=== PATIENT | female | born 1995 | race Caucasian/White ===

== ENCOUNTER 2020-11-13 19:05 | Emergency (ER) | payer OTHER ==
[~2020-11-13] VITALS: Ht 157.5 cm; Wt 61.2 kg
[~2020-11-13 19:05] MED LIST: Amoxicillin500 MG PO
[2020-11-13 19:35] LABS: BASOPHILS ABSOLUTE AUTO 0.08 K/mm3 (0.00-0.23); BASOPHILS PERCENT AUTO 1 % (0-2); EOSINOPHILS ABSOLUTE AUTO 0.11 K/mm3 (0.00-0.68); EOSINOPHILS PERCENT AUTO 2 % (0-6); Hematocrit 39.8 % (33.0-51.0); Hemoglobin 13.1 g/dL (11.5-16.0); IMMATURE GRAN ABSOLUTE AUTO 0.02 K/mm3 (0.00-0.10); IMMATURE GRAN PERCENT AUTO 0 % (0-1); LYMPHOCYTES ABSOLUTE AUTO 2.14 K/mm3 (0.84-5.20); LYMPHOCYTES PERCENT AUTO 29 % (21-46); MONOCYTES ABSOLUTE AUTO 0.69 K/mm3 (0.16-1.47); MONOCYTES PERCENT AUTO 10 % (4-13); Mean Corpuscular HGB 28.7 pg (26.0-34.0); Mean Corpuscular HGB Conc 32.9 g/dL (31.5-36.5); Mean Corpuscular Volume 87 fL (80-100); Mean Platelet Volume 11.3 fL (9.1-12.4); NEUTROPHILS ABSOLUTE AUTO 4.25 K/mm3 (1.96-9.15); NEUTROPHILS PERCENT AUTO 58 % (41-73); Platelet Count 281 K/mm3 (150-400); RDW Standard Deviation 40.7 fL (35.1-46.3); Red Blood Cell Count 4.57 M/mm3 (3.80-5.20); White Blood Cell Count 7.29 K/mm3 (4.00-11.30)
[2020-11-13 19:43] LABS: Source, Urine Clean Catch
[2020-11-13 19:47] LABS: Appearance, Urine Clear (Clear); Bilirubin, Urine Neg (Neg); Blood, Urine Neg (Neg); Color, Urine Yellow (P-Yellow); Glucose Qualitative, Urine Neg (Neg); Ketones, Urine Neg (Neg); Leukocyte Esterase, Urine Neg (Neg); Nitrite, Urine Neg (Neg); Protein, Urine 1+ (Neg); Specific Gravity, Urine 1.015 (1.003-1.022); Urobilinogen, Urine NORM (Normal)
[2020-11-13 19:58] LABS: Alanine Aminotransfer (ALT/SGP 30 U/L (12-78); Albumin, Blood 4.2 g/dL (3.4-5.0); Alk Phos 70 U/L (50-136); Anion Gap 6 mmol/L (6-16); Aspartate Aminotrans (AST/SGOT 29 U/L (12-37); Bilirubin, Total 0.7 mg/dL (0.1-1.0); Blood Urea Nitrogen 13 mg/dL (8-24); Bun/Creatinine Ratio 20.3 (12.0-20.0); CO2, Blood 24 mmol/L (21-32); Chloride, Blood 110 mmol/L (98-108); Creatinine, Blood 0.64 mg/dL (0.40-1.00); Globulin, Blood 4.4 g/dL (2.2-4.0); Glomerular Filtration Rate >60 (60-); Glucose, Blood 95 mg/dL (70-99); Potassium, Blood 4.4 mmol/L (3.5-5.5); Sodium, Blood 140 mmol/L (136-145); Total Protein, Blood 8.6 g/dL (6.4-8.2)
== END 2020-11-13 21:52 | disposition home or self-care (01) ==
LOC: ER 19:05
PROVIDERS: Emergency Medicine
DX: N83.201 Unspecified ovarian cyst, right side (principal); N83.202 Unspecified ovarian cyst, left side
CPT/HCPCS: 36415; 76830; 76856; 80053; 81025; 85025; 99284-25

== ENCOUNTER → 2021-03-14 | Outpatient (CLI) | payer OTHER | END | disposition home or self-care (01) | LOC: LAB 12:45 → LAB SHORT 12:45 | DX: J02.9 Acute pharyngitis, unspecified (principal) | CPT/HCPCS: 87081 ==

== ENCOUNTER → 2023-11-08 | Outpatient (CLI) | payer OTHER ==
[2023-11-11 17:27] LABS: APTIMA MEDIA TYPE Urine; C. TRACHOMATIS BY TMA Positive (Negative); N. GONORRHOEAE BY TMA Negative (Negative); SPECIMEN SOURCE Urine; T. VAGINALIS BY TMA Negative (Negative)
== END | disposition home or self-care (01) ==
LOC: LAB 23:47 → LAB SHORT 23:47
PROVIDERS: Nurse Practitioner Family
DX: Z72.51 High risk heterosexual behavior (principal); R82.90 Unspecified abnormal findings in urine
CPT/HCPCS: 86592; 87077; 87086; 87186; 87491; 87591; 87661